=== PATIENT | male | born 1985 | race African-American/Black ===

== ENCOUNTER → 2018-04-14 14:37 | Outpatient (CLI) | payer MEDICAID ==
--- NOTE | ~2018-04-14 | ST ---
PATIENT:JOSUE PAYNE MEDICAL RECORD: [id number] SEX: M LOCATION:[facility] ORDER #: ADMISSION DATE: 04/14/18 AGE OF PATIENT: 32 REFERRING PHYSICIAN: INTERPRETING PHYSICIAN: JANETH POWER MD DATE OF SERVICE: 04/14/2018 PROCEDURE: Treadmill stress test. Baseline ECG is normal. He exercised for 10 minutes under Ortiz protocol. Maximum heart rate is 111 beats per minute. No ECG change for ischemia. No symptoms of ischemia. Normal blood pressure response to exercise. No arrhythmias noted. Fair exercise tolerance for age. TRANSINT:[id number] Voice Confirmation ID: [id number] DOCUMENT ID: [id number] JANETH POWER MD CC: [id number] DICTATION DATE: 04/18/18 1357 [place]TH[facility] NURSE: 04/18/18 1423 [facility] [place]/14[place] [id number]
== END | disposition home or self-care (01) ==
LOC: D.HCCARDIO 14:30
PROVIDERS: ATTEND Internal Medicine Interventional Cardiology
DX: R07.9 Chest pain, unspecified (principal)

== ENCOUNTER 2018-05-24 10:07 | Emergency (ER) | payer MEDICAID ==
[~2018-05-24] VITALS: Ht 172.7 cm; Wt 64.5 kg
[2018-05-24 10:11] VITALS: Ht 172.7 cm; Wt 64.5 kg
[2018-05-24] MEDS ORDERED: TENORMIN25 MG (10:13)
[2018-05-24 10:34] LABS: BASOPHILS 0.2 % (0-2); EOSINOPHILS 2.4 % (0-7); HEMATOCRIT 44.8 % (42.0-54.0); HEMOGLOBIN 15.3 g/dL (13.5-17.5); LYMPHOCYTES 18.9 % (15-50); MCH 28.8 pg (26.0-34.0); MCHC 34.2 g/dL (31.0-37.0); MCV 84.2 fL (80.0-100.0); MEAN PLATELET VOLUME 9.4 fL (7.4-10.4); MONOCYTES 9.5 % (2-11); PLATELET COUNT 166 10x3/uL (130-400); RBC 5.32 10x6/uL (4.20-6.10); RDW 13.8 % (11.5-14.5); WBC 6.3 10x3/uL (4.8-10.8)
[2018-05-24 10:53] LABS: ALBUMIN 4.5 g/dL (3.4-5.0); ANION GAP 15.8 mmol/L (8-16); BILIRUBIN - TOTAL 0.74 mg/dL (0.2-1.3); CALCIUM 9.5 mg/dL (8.5-10.1); CREATININE - SERUM 1.2 mg/dL (0.6-1.3); POTASSIUM - SERUM 3.8 mmol/L (3.5-5.1); PROTEIN - SERUM 8.1 g/dL (6.4-8.2)
[2018-05-24 10:57] LABS: APPEARANCE CLEAR (CLEAR); BILIRUBIN NEGATIVE (NEGATIVE); COLOR YELLOW (YELLOW); GLUCOSE NEGATIVE (NEGATIVE); KETONE SMALL mg/dL (NEGATIVE); NITRITE NEGATIVE (NEGATIVE); PROTEIN NEGATIVE (NEGATIVE); SPECIFIC GRAVITY 1.005 (1.005-1.020); UROBILINOGEN NORMAL (NORMAL)
[2018-05-24] MEDS ORDERED: PHENERGAN25 M1 PO (11:06)
[2018-05-24] MEDS ORDERED: LOMOTIL 2.5-0.1 EAC1 PO (11:06)
[2018-05-24 11:44] VITALS: BP 99/56
== END 2018-05-24 11:32 | disposition home or self-care (01) ==
LOC: D.ER 10:07
PROVIDERS: Family Medicine
DX: K52.9 Noninfective gastroenteritis and colitis, unspecified (principal); I10 Essential (primary) hypertension

== ENCOUNTER 2019-03-01 17:24 | Emergency (ER) | payer MEDICAID ==
[~2019-03-01] VITALS: Ht 172.7 cm; Wt 65.9 kg
[~2019-03-01 17:24] MED LIST: LOMOTIL 2.5-0.1 EAC1 PO; PHENERGAN25 M1 PO; TENORMIN25 MG
[2019-03-01 18:11] VITALS: Ht 172.7 cm; Wt 65.9 kg
[2019-03-01] MEDS ORDERED: LISINOPRIL5 MG PO (18:13)
[2019-03-01] MEDS ORDERED: CIPRO500 MG PO (18:13)
[2019-03-01 19:44] LABS: BASOPHILS 0.2 % (0-2); EOSINOPHILS 0.7 % (0-7); HEMOGLOBIN 13.8 g/dL (13.5-17.5); IMMATURE GRANULOCYTES 0.2 % (0-5); LYMPHOCYTES 10.1 % (15-50); MCH 28.5 pg (26.0-34.0); MCHC 32.9 g/dL (31.0-37.0); MCV 86.8 fL (80.0-100.0); MEAN PLATELET VOLUME 9.3 fL (7.4-10.4); MONOCYTES 7.4 % (2-11); NEUTROPHILS 81.4 % (40-80); PLATELET COUNT 167 10x3/uL (130-400); RBC 4.84 10x6/uL (4.20-6.10); RDW 14.2 % (11.5-14.5); WBC 6.1 10x3/uL (4.8-10.8)
[2019-03-01 20:02] LABS: CALC OSMOLALITY 273 mosm/kg (275-300); CALCIUM 9.1 mg/dL (8.5-10.1); CARBON DIOXIDE 26.5 mmol/L (21.0-32.0); CHLORIDE - SERUM 102 mmol/L (98-107); CREATININE - SERUM 1.2 mg/dL (0.6-1.3); GLUCOSE 89 mg/dL (74-106); POTASSIUM - SERUM 3.4 mmol/L (3.5-5.1); SODIUM 137 mmol/L (136-145); UREA NITROGEN 15 mg/dL (7-18); eGFR NON AFRICAN AMERICAN 74 mL/min (90-120)
[2019-03-01 20:25] LABS: ALKALINE PHOSPHATASE 57 U/L (46-116); ALT (SGPT) 18 U/L (10-68); BILIRUBIN - TOTAL 0.33 mg/dL (0.2-1.3); CREATINE KINASE 234 UL (21-232); PROTEIN - SERUM 7.4 g/dL (6.4-8.2)
[2019-03-01 20:32] LABS: CKMB 0.3 U/L (0.0-3.6)
[2019-03-01] MEDS ORDERED: PROMETHAZINE W473 ML PO (21:14)
[2019-03-01] MEDS ORDERED: TAMIFLU75 MG PO (21:14)
[2019-03-01 21:35] VITALS: BP 127/72
== END 2019-03-01 21:35 | disposition home or self-care (01) ==
LOC: D.ER 17:24
PROVIDERS: Family Medicine
DX: J11.1 Influenza due to unidentified influenza virus with other respiratory manifestations (principal); I10 Essential (primary) hypertension; Z72.0 Tobacco use; R51 Headache